=== PATIENT | female | born 1980 | race Hispanic/Latino ===

== ENCOUNTER 2024-11-07 19:50 | Emergency (ER) | payer BC ==
[~2024-11-07] VITALS: Ht 165.1 cm; Wt 94.1 kg
[2024-11-07 20:34] LABS: KETONE, URINE AUTO RFX NEGATIVE (NEGATIVE); LEUKOCYTE ESTERASE UR AUTO RFX 2+ (NEGATIVE); NITRITE, URINE AUTO RFX NEGATIVE (NEGATIVE); RBC, URINE AUTO RFX 1 /HPF (0-3); SQUAM EPITHELIAL CELL UR AURFX 5 /HPF (0-6); WBC, URINE AUTO RFX 3 /HPF (0-3)
[2024-11-07] MEDS: FIORICET TAB PO ONE (20:45)
[2024-11-07 20:54] LABS: BASO # 0.1 10^3/uL (0.0-0.2); BASO % 0.5 % (0.0-1.0); EOS # 0.1 10^3/uL (0.0-0.5); EOS % 0.9 % (0.0-3.0); LYMPH # 1.8 10^3/uL (1.5-5.0); LYMPH % 17.5 % (24.0-44.0); MONO # 0.5 10^3/uL (0.0-0.8); MONO % 4.5 % (2.0-8.0); NEUTROPHILS # 8.0 10^3/uL (1.5-8.5); NEUTROPHILS % 76.3 % (36.0-66.0); PLATELET COUNT, AUTOMATED 531 10^3/uL (150-450)
[2024-11-07 21:00] LABS: ERYTHROCYTE SEDIMENTATION RATE 63 mm/hr (0-20)
[2024-11-07 21:23] LABS: CALCIUM LEVEL 8.7 MG/DL (8.5-10.1); CARBON DIOXIDE LEVEL 24 MMOL/L (20-31); CHLORIDE LEVEL 102 MMOL/L (98-107); CREATININE FOR GFR 0.53 MG/DL (0.55-1.30); GLOMERULAR FILTRATION RATE > 90.0 (>58); POTASSIUM SERUM 3.9 MMOL/L (3.5-5.1); SODIUM LEVEL 138 MMOL/L (136-145)
[2024-11-07 22:00] VITALS: BP 172/86
[2024-11-07 22:05] VITALS: TEMP 97.8; O2SAT 99
[2024-11-07] MEDS ORDERED: FERR325T3 PO (22:14)
[2024-11-07] MEDS ORDERED: FIOR1CAP PO (22:14)
== END 2024-11-07 22:26 | disposition home or self-care (01) ==
LOC: M ED 19:50
DX: R51.9 Headache, unspecified (principal); R03.0 Elevated blood-pressure reading, without diagnosis of hypertension; D50.9 Iron deficiency anemia, unspecified; Z79.1 Long term (current) use of non-steroidal anti-inflammatories (NSAID)
CPT/HCPCS: 80048; 81001; 85025; 85652; 87086; 96374; 99284; J2765